=== PATIENT | female | born 1980 | race Asian ===

== ENCOUNTER 2016-12-01 03:15 | Inpatient (IN) | payer SELFPAY ==
[~2016-12-01] VITALS: Ht 160 cm; Wt 64.0 kg
[2016-12-01 03:30] VITALS: BP 103/70
[2016-12-01] MEDS ORDERED: TERBUTALINE 1 MG/ML VIAL SUBQ ONE (03:34)
[2016-12-01] MEDS ORDERED: BETAMETH ACET/BETAMETH NA PH 30 MG/5 ML VIAL IM ONE (03:34)
[2016-12-01] MEDS ORDERED: LACTATED RINGERS 1,000 ML IV SCH (04:23)
[2016-12-01] MEDS ORDERED: TERBUTALINE 1 MG/ML VIAL SUBQ SCH (04:30)
[2016-12-01] MEDS ORDERED: STOOL SOFTENER (06:49)
[2016-12-01] MEDS ORDERED: INFLUENZA VIRUS VACCINE QUAD 0.5 ML SYR IMVAC SCH (07:00)
[2016-12-01] MEDS ORDERED: TRIAMCINOLONE 40 MG/ML 5ML VIAL ONE (07:02)
[2016-12-01] MEDS ORDERED: OXYTOCIN 10 UNITS/ML VIAL ONE ×2 (07:02→07:40)
[2016-12-01] MEDS ORDERED: ceFAZolin 1,000 MG VIAL ONE ×2 (07:07→07:40)
[2016-12-01] MEDS ORDERED: CITRIC ACID/SODIUM CITRATE 30 ML UDC ONE (07:11)
[2016-12-01] MEDS ORDERED: MORPHINE PRES FREE 10 MG/10 ML AMP IV ONE (07:31)
[2016-12-01] MEDS ORDERED: ONDANSETRON 4 MG/2 ML VIAL ONE (07:40)
[2016-12-01] MEDS ORDERED: BUPIVACAINE-MPF 0.75% 10 ML VIAL INJ ONE (07:40)
[2016-12-01] MEDS ORDERED: METOCLOPRAMIDE 10 MG/2 ML INJ VIAL ONE (07:40)
[2016-12-01] MEDS ORDERED: SIMETHICONE 80 MG TAB.CHEW PO PRN (07:50)
[2016-12-01] MEDS ORDERED: oxyCODONE/APAP 5/325 MG 1 TAB TAB PO PRN (07:50)
[2016-12-01] MEDS ORDERED: TEMAZEPAM 15 MG CAP PO PRN (07:50)
[2016-12-01] MEDS ORDERED: METHYLERGONOVINE 0.2 MG/ML AMP IM PRN (07:50)
[2016-12-01] MEDS ORDERED: MEASLES, MUMPS, AND RUBELLA 1 VIAL SQVAC PRN (07:50)
[2016-12-01] MEDS ORDERED: TRIMETHOBENZAMIDE 200 MG/2 ML SYR IM PRN (07:50)
[2016-12-01] MEDS ORDERED: KETOROLAC 30 MG/ML VIAL IVP PRN (08:00)
[2016-12-01] MEDS ORDERED: diphenhydrAMINE 50 MG/ML VIAL IVP PRN (08:00)
[2016-12-01] MEDS ORDERED: NALOXONE 0.4 MG/ML VIAL IVP PRN ×2 (08:00)
[2016-12-01] MEDS ORDERED: ONDANSETRON 4 MG/2 ML VIAL IVP PRN (08:00)
--- NOTE | 2016-12-01 08:03 | NUR ---
PATIENT HAS BEEN SCREENED AND CATEGORIZED LOW NUTRITION RISK. PATIENT WILL BE SEEN WITHIN 7 DAYS OF ADMISSION. 12/07/[address]
[2016-12-01] MEDS ORDERED: BETAMETH ACET/BETAMETH NA PH 30 MG/5 ML VIAL IM SCH (09:00)
[2016-12-01] MEDS ORDERED: OXYTOCIN 20 UNITS/LR PREMIX 1,000 ML IV ONE (09:29)
[2016-12-01] MEDS: OXYTOCIN 20 UNITS/LR PREMIX 1,000 ML IV SCH ×2 (12:56→21:09)
[2016-12-01] MEDS: DOCUSATE SOD/SENNA 50/8.6 MG 1 TAB PO SCH (21:00)
[2016-12-02] MEDS: HYDROcodone/APAP 5/325 MG 1 TAB TAB PO PRN ×2 (02:21→18:33)
[2016-12-02] MEDS: IBUPROFEN 800 MG TAB PO PRN (08:59)
[2016-12-02] MEDS: DOCUSATE SOD/SENNA 50/8.6 MG 1 TAB PO SCH (21:17)
[2016-12-03] MEDS ORDERED: SODIUM PHOSPHATE 118 ML ENEM RC PRN (08:10)
[2016-12-03] MEDS: HYDROcodone/APAP 5/325 MG 1 TAB TAB PO PRN (09:37)
[2016-12-03] MEDS: DOCUSATE SOD/SENNA 50/8.6 MG 1 TAB PO SCH (20:40)
[2016-12-04] MEDS: IBUPROFEN 800 MG TAB PO PRN (00:30)
== END 2016-12-04 14:45 | disposition home or self-care (01) | DRG 765 ==
LOC: MLD 03:15 → MFCC 08:25
PROVIDERS: ADMIT Obstetrics & Gynecology; ATTEND Obstetrics & Gynecology
PROC: 10D00Z1 Extraction of Products of Conception, Low, Open Approach (ICD-10-PCS; principal; 2016-12-01 07:30)
DX: O34.211 Maternal care for low transverse scar from previous cesarean delivery (principal); O45.93 Premature separation of placenta, unspecified, third trimester; O89.4 Spinal and epidural anesthesia-induced headache during the puerperium; Z37.0 Single live birth; Z3A.37 37 weeks gestation of pregnancy; Z87.440 Personal history of urinary (tract) infections; Z28.21 Immunization not carried out because of patient refusal; Z83.3 Family history of diabetes mellitus